=== PATIENT | female | born 1995 | race Two or more races ===

== ENCOUNTER 2018-07-04 08:08 | Emergency (ER) | payer SELFPAY ==
[~2018-07-04] VITALS: Ht 160 cm; Wt 81.6 kg
[2018-07-04] MEDS ORDERED: NKM (08:15)
--- NOTE | 2018-07-04 08:37 | Emergency Room Report ---
History of Present Illness General Chief Complaint: Earache Source: Patient Present Illness HPI Patient presents with complaints of left ear pain for the past 3-4 days she reports that initially there was just a sensation of swelling However the pain started about 2-3 days ago Denies any fevers denies any neck pain or photophobia She felt a small lymph node on the left lower jaw area Patient reports about 2-3 ear infections per year Denies any recent water contact Denies any rash Allergies: Coded Allergies: No Known Allergies (Unverified , 07/04/18) Patient History Past Medical History: see triage record Pertinent Family History: none Last Menstrual Period: unknown Reviewed Nursing Documentation: PMH: Agreed; PSxH: Agreed Nursing Documentation-PMH Past Medical History: No Stated History Review of Systems All Other Systems: negative except mentioned in HPI Physical Exam Vital Signs Date Time Temp Pulse Resp B/P (MAP) Pulse Ox O2 Delivery O2 Flow Rate FiO2 07/04/18 08:12 98.0 87 16 138/83 97 Room Air 98.1 Sp02 EP Interpretation: reviewed, normal General Appearance: well appearing, no apparent distress Head: normocephalic, atraumatic Eyes: bilateral eye PERRL, bilateral eye EOMI ENT: other - The left ear canal appears edematous and irritated, tympanic membrane is erythematous and bulging the right side is clear no obvious drainage. Mastoid is nontender and non-boggy Neck: full range of motion, supple Respiratory: lungs clear Cardiovascular #1: regular rate, rhythm, no edema Gastrointestinal: non tender Musculoskeletal: normal inspection Neurologic: alert, oriented x3, responsive Skin: normal color, no rash Lymphatic: no adenopathy Medical Decision Making Diagnostic Impression: Primary Impression: Otitis media Additional Impression: Otitis externa ER Course Patient's findings are clinically consistent with otitis externa and media Patient is discussed regarding avoiding Q-tip usage Also requiring close outpatient follow-up Patient is placed on appropriate medication for both and requires close outpatient follow-up Last Vital Signs Date Time Temp Pulse Resp B/P (MAP) Pulse Ox O2 Delivery O2 Flow Rate FiO2 07/04/18 08:12 98.0 87 16 138/83 97 Room Air 98.1 Status: unchanged Disposition: HOME, SELF-CARE Condition: Stable Additional Instructions: Patient is provided with the discharge instructions notified to follow up with primary doctor in the next 2-3 days otherwise return to the er with any worsening symptoms. Please note that this report is being documented using DRAGON technology. This can lead to erroneous entry secondary to incorrect interpretation by the dictating instrument. Tess Hernandez DO Jul 04, 2018 08:37
[2018-07-04] MEDS ORDERED: CORTISPORIN EAR10 ML OTIC (08:40)
[2018-07-04] MEDS ORDERED: AMOXICILLIN500 MG ORAL (08:40)
[2018-07-04] MEDS ORDERED: IBUPROFEN600 MG ORAL (08:41)
[2018-07-04 08:55] VITALS: BP 138/83
== END 2018-07-04 08:55 | disposition home or self-care (01) ==
LOC: EMR 08:55
DX: H60.92 Unspecified otitis externa, left ear (principal); H66.92 Otitis media, unspecified, left ear
CPT/HCPCS: 99282